=== PATIENT | male | born 1990 ===

== ENCOUNTER 2025-03-21 12:39 | Outpatient (AMB) | payer MEDICAID, SELFPAY ==
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
[2025-03-21 13:02] VITALS: BP 98/68; PULSE 114; RESP 16; O2SAT 97; BMI 24.5
== END 2025-03-21 13:41 | disposition home or self-care (01) ==
LOC: HO.HSM 12:40
PROVIDERS: Visit Provider Nurse Practitioner
DX: R41.89 Other symptoms and signs involving cognitive functions and awareness (principal); Z87.820 Personal history of traumatic brain injury
CPT/HCPCS: 99203

== ENCOUNTER → 2025-03-21 12:39 | Outpatient (BNVA) | payer MEDICAID, SELFPAY | PROVIDERS: Visit Provider Nurse Practitioner | DX: R41.89 Other symptoms and signs involving cognitive functions and awareness (principal); Z87.820 Personal history of traumatic brain injury | CPT/HCPCS: 99202 ==